=== PATIENT | female | born 1985 | race Two or more races ===

== ENCOUNTER 2024-08-24 04:43 | Emergency (ER) | payer SELFPAY ==
[2024-08-24 04:44] VITALS: BMI 25.6
[2024-08-24 05:53] VITALS: BP 147/91; PULSE 76; RESP 16; TEMP 36.8; O2SAT 100
--- NOTE | 2024-08-24 06:40 | XR_ITS ---
Examination: OB Transvaginal ultrasound of the pelvis, complete Technique: Transvaginal sonographic images pelvis performed using galan scale imaging Exam date and time: August 24, 2024 0732 hours INDICATIONS: Vaginal bleeding and pelvic cramping beginning 2 days ago FINDINGS: Uterus 11.5 cm, pole 2.3 cm corresponding to 19 week 0 day gestational age Cardiac motion 169 bpm Right ovary 4.6 cm arterial flow 20 x 16 mm cyst with internal echoes Left ovary is obscured by bowel gas IMPRESSION: Viable intrauterine gestation 9 weeks 0 days, no subchorionic hemorrhage.
--- NOTE | 2024-08-24 06:49 | PD.EDRME ---
Rapid Medical Screening Exam RME Arrival date/time: 08/24/24 04:43 This is a 39-year-old female that comes into the emergency room with complaints of vaginal bleeding. Patient states that yesterday she started having vaginal spotting but today she is actually having blood when she wipes. Patient is a 5 para 4. Patient states she is unsure when her last menstrual period was because she had a day where she bled in June but last menstrual period was in May. Patient thinks she is about 11 weeks . Patient reports that she is also experienced some abdominal lower cramping patient denies any past medical history. Patient denies any urinary symptoms. Patient denies any nausea vomiting. I have greeted and performed a focused initial assessment of this patient. Initial appropriate labs ordered at this time. A comprehensive ED assessment and evaluation of the patient and analysis of all test and completion of medical decision making process will be conducted by additional ED provider. Chief Complaint: Vaginal Bleeding Time Seen by Provider: 08/24/24 06:19 Vital signs: Vital Signs Temperature 98.2 F 08/24/24 05:53 Pulse Rate 76 08/24/24 05:53 Respiratory Rate 16 08/24/24 05:53 Blood Pressure 147/91 H 08/24/24 05:53 Pulse Oximetry (%) 100 08/24/24 05:53 Oxygen Delivery Method Room Air 08/24/24 05:53
[2024-08-24 08:05] LABS: Collection Type, Urine Voided
[2024-08-24 08:25] LABS: Basophils % (Auto) 0 % (0-2.5); Eosinophils % (Auto) 0 % (0-10); Hemoglobin 12.9 g/dL (12.0-16.0); Immature Granulocytes % (Auto) 1 % (0-0); Immature Granulocytes Auto 0.11 Thou/mm3 (0.00-0.00); Lymphocytes # (Auto) 1.6 Thou/mm3 (1.0-4.8); Lymphocytes % (Auto) 18 % (10-50); Mean Corpuscular HGB Conc 36.9 g/dl (31.0-37.0); Mean Corpuscular Hemoglobin 33.9 pg (25.0-35.0); Mean Corpuscular Volume 92 fL (80-100); Monocytes # (Auto) 0.6 Thou/mm3 (0.0-0.8); Monocytes % (Auto) 6 % (0-12); Neutrophils # (Auto) 6.8 Thou/mm3 (1.8-7.7); Neutrophils % (Auto) 75 % (37-80); Nucleated Red Blood Cell % 0 /100 WBC (0); Platelet Count 178 Thou/mm3 (140-440); RDW Standard Deviation 40.6 fL (36.4-46.3); White Blood Count 9.2 Thou/mm3 (3.6-11.0)
[2024-08-24 08:37] LABS: Amorphous Crystals,Urine Present (Absent); Bilirubin,Urine Negative (Negative); Blood,Urine Negative (Negative); Clarity,Urine Turbid (Clear/Hazy); Color,Urine Yellow (Lt Yel-Yel); Culture Indicated,Urine Not Indicated; Glucose, Urine Negative (Negative); Ketones,Urine Negative (Negative); Leukocyte Esterase,Urine Negative (Negative); Nitrite,Urine Negative (Negative); PH,Urine 7.5 (5.0-7.0); Protein,Urine Negative (Neg - Trace); RBC,Urine 1 /hpf (0-3); Specific Gravity,Urine 1.021 (1.001-1.035); Squamous Epithelial Cell,Urine 1 /hpf (0-5); Urobilinogen,Urine Negative mg/dL (0.0-1.0); WBC,Urine < 1 /hpf (0-5)
[2024-08-24 08:42] LABS: Alanine Aminotransferase 11 U/L (10-49); Albumin, Serum 4.3 gm/dL (3.5-5.0); Albumin/Globulin Ratio 1.9 (1.2-2.2); Alkaline Phosphatase 40 U/L (46-116); Anion Gap 9 (7-16); Aspartate Amino Transferase 16 U/L (0-34); BUN/Creatinine Ratio 13 Ratio (12-20); Bilirubin,Total 0.6 mg/dL (0.3-1.2); Blood Urea Nitrogen 8 mg/dL (9-23); Calcium 8.6 mg/dL (8.3-10.6); Calcium (Corrected) 8.6 mg/dL (8.5-10.1); Chloride 105 mMol/L (98-107); Creatinine (Component) 0.6 mg/dL (0.6-1.3); Estimated Creatinine Clearance 111.3 mL/min (>60); Globulin 2.3 gm/dL (2.3-3.5); Glucose 89 mg/dL (74-106); Osmolality,Calculated 274 (275-295); Potassium 4.3 mMol/L (3.4-5.1); Sodium 139 mMol/L (136-145); Total Protein 6.6 gm/dL (5.7-8.2); eGFR > 60 See Note
[2024-08-24 09:16] LABS: Beta HCG,Quantitative 107295 mIU/mL (<5.0)
--- NOTE | 2024-08-24 09:31 | PD.EDVAGBL ---
ED OB Contraction Preg RMI/HPI General Chief complaint: Vaginal Bleeding Stated complaint: VAGINAL BLEEDING Time Seen by Provider: 08/24/24 06:19 Arrival date/time: 08/24/24 04:43 RME / HPI RME / HPI Narrative: 08/24/24 04:43 This is a 39-year-old female that comes into the emergency room with complaints of vaginal bleeding. Patient states that yesterday she started having vaginal spotting but today she is actually having blood when she wipes. Patient is a 5 para 4. Patient states she is unsure when her last menstrual period was because she had a day where she bled in June but last menstrual period was in May. Patient thinks she is about 11 weeks . Patient reports that she is also experienced some abdominal lower cramping patient denies any past medical history. Patient denies any urinary symptoms. Patient denies any nausea vomiting. I have greeted and performed a focused initial assessment of this patient. Initial appropriate labs ordered at this time. A comprehensive ED assessment and evaluation of the patient and analysis of all test and completion of medical decision making process will be conducted by additional ED provider. DR. ALEJANDRO MAIN ED EVALUATION: 39 year old female, , currently 11 weeks by LMP of 06/05/2024, presents to the ED with vaginal bleeding. She reports light pink spotting over the past two days, which progressed to a heavier amount (less than a period) of bright red bleeding this morning. Bleeding is associated with pelvic cramping. She has not yet established care but has an OB appointment scheduled for 09/16/2024. She denies any other associated symptoms, including fever, chills, vomiting, or urinary symptoms. Related Data Home Medications ?Medication ?Instructions ?Recorded ?Confirmed vitamins-iron fumarate 27 1 tab PO QDAY 10/07/19 10/07/19 mg iron-folic acid 0.8 mg tablet ( Vitamin) Previous Rx's ?Medication ?Instructions ?Recorded ibuprofen 800 mg tablet 800 mg PO Q6H PRN pain #30 tabs 10/08/19 amoxicillin 875 mg-potassium 1 tab PO BID #14 tabs 09/17/22 clavulanate 125 mg tablet Allergies Allergy/AdvReac Type Severity Reaction Status Date / Time erythromycin base (From Allergy Rash Verified 08/24/24 04:44 Pediazole) sulfisoxazole (From Allergy Rash Verified 08/24/24 04:44 Pediazole) Review of Systems Review of Systems Narrative Review of Systems: Gen: No fever, no chills, no weight loss EYES: No discharge, no visual changes, no pain HEENT: No ear pain, no congestion, no sore throat PULM: no shortness of breath, no cough, no congestion CV: No chest pain, no dyspnea on exertion, no palpitations, no chest tightness GI: No nausea, no vomiting, no diarrhea, +pain, +vaginal bleeding, no constipation : No frequency, no urgency,? no dysuria Musc/skel: No joint pain, no back pain Skin: No rash, no ecchymosis, no lesions Neuro: No weakness, no headache Past Medical History Past Medical History REPRODUCTIVE: Positive Previous Pregnancies MUSCULOSKELETAL: Positive Musculoskeletal Disorders Family History FAMILY HISTORY: Positive Family Cardiac Disorders (maternal grandmother) and Family Cancer (paternal grandfather) Surgical History SURGICAL: Negative Section Social History SMOKING STATUS: Never smoker SECOND HAND EXPOSURE: No ED Exam Narrative Physical exam: GENERAL APPEARANCE: AxOx4, no obvious distress, nontoxic appearing HEENT: NC, AT. MMM. EOMI, clear conjunctiva, oropharynx clear. NECK: Supple. No stiffness or restricted ROM. HEART: Normal rate and regular rhythm, normal S1/S1, no m/r/g LUNGS: CTAB, moving air well. No crackles or wheezes are heard. ABDOMEN: Soft, nontender, nondistended with good bowel sounds heard. EXTREMITIES: Without cyanosis, clubbing or edema. MUSCULOSKELETAL: FROM of all major joints, no chest tenderness NEUROLOGICAL: Grossly nonfocal. Alert and oriented, moving all 4 extremities. CN not formally tested but appear grossly intact. Skin: Warm and dry without any rash. Course Quality Measures none Orders Category Date Time Status US OB transvaginal Stat Exams 08/24/24 06:40 Completed ABO/RH Type - Stat Lab 08/24/24 08:01 Results Beta HCG,Quantitative Stat Lab 08/24/24 08:01 Completed CBC Stat Lab 08/24/24 08:01 Completed Comprehensive Metabolic Panel Stat Lab 08/24/24 08:01 Completed Urinalysis, C/S if Indicated Stat Lab 08/24/24 06:57 Completed Vital Signs Vital signs: Vital Signs Temperature 98.2 F 08/24/24 05:53 Pulse Rate 76 08/24/24 05:53 Respiratory Rate 16 08/24/24 05:53 Blood Pressure 147/91 H 08/24/24 05:53 Pulse Oximetry (%) 100 08/24/24 05:53 Oxygen Delivery Method Room Air 08/24/24 05:53 Pulse ox is 100% on room air which is adequate. Vaginal Bleeding MDM Narrative MDM Narrative: Ade Cisneros am scribing for and in the presence of Dr. Alejandro. 39 year old at 11 weeks gestation by LMP presents with vaginal bleeding and pelvic cramping. Bleeding began as light pink spotting two days ago and progressed to bright red bleeding this morning, described as less than a typical menstrual period. She has not yet established care but has an OB appointment scheduled. Ultrasound performed in the ED shows a viable intrauterine consistent with 9 weeks 0 days gestation. beta-hCG is 107,295. Urinalysis shows only 1 RBC. Presentation is consistent with threatened miscarriage, though viability is confirmed on ultrasound. Patient counseled on signs of worsening bleeding or miscarriage. Advised pelvic rest until she is able to see her OB. Patient data External records reviewed:: [facility] previous records (I reviewed ED visit on 09/17/2022 ) Clinical information provided by:: patient Social determinants that could affect healthcare access:: none Patient has the following chronic illnesses:: , currently 11 weeks by LMP of 06/05/2024 No chronic medical hx reported How is presenting disease/condition affected by chronic disease/condition?: no chronic disease Evaluation data The following diagnostics were reviewed and interpreted by me:: lab results and radiology exam(s) Lab and/or radiology exams considered but not ordered:: None Interpretation Summary: Ordering Physician: Danelle Kolb NP Date of Service: 08/24/24 Procedure(s): US OB transvaginal Accession Number(s): [id number] cc: Dejan Martinez MD; Danelle Kolb NP; JOSE BULLARD~ Examination: OB Transvaginal ultrasound of the pelvis, complete Technique: Transvaginal sonographic images pelvis performed using galan scale imaging Exam date and time: August 24, 2024 0732 hours INDICATIONS: Vaginal bleeding and pelvic cramping beginning 2 days ago FINDINGS: Uterus 11.5 cm, pole 2.3 cm corresponding to 19 week 0 day gestational age Cardiac motion 169 bpm Right ovary 4.6 cm arterial flow 20 x 16 mm cyst with internal echoes Left ovary is obscured by bowel gas IMPRESSION: Viable intrauterine gestation 9 weeks 0 days, no subchorionic hemorrhage. Dictated By:Dejan Martinez MD Signed By:<Electronically signed by Dejan Martinez MD in OV>08/24/24 0810 Medications / Prescriptions Medications or Prescriptions considered but not ordered:: None Medication administrations:: None Consultations Consultation(s) initiated? (list below): No Diagnosis Vaginal Bleeding Differential Diagnosis: threatened , incomplete , ectopic without intrauterine and vaginal bleeding Most likely diagnosis given after review of the tests above:: Threatened miscarriage Admission Indicated Admission indicated?: not indicated Admission Request Was there a request for admission?: No Disposition Plan Disposition Plan: Discharge Discharge Attestation Discharge Attestation: The patient and all family members were given an opportunity to ask questions and understood the discharge instructions. Discharge instructions specifically effects, indications for sooner follow up or return to the emergency department, and the expected course of current diagnosis. Patient condition: Stable Discharge Plan Plan Patient Disposition: HOME (Self Care) Prescriptions/Referrals Prescriptions/Med Rec: No Action Vitamin 27 mg iron- 0.8 mg Tablet 1 tab PO QDAY ibuprofen 800 mg tablet 800 mg PO Q6H PRN (Reason: pain) Qty: 30 0RF amoxicillin-pot clavulanate 875-125 mg tablet 1 tab PO BID Qty: 14 0RF Referrals: Jose Bullard PA-C [Primary Care Provider] - In 1 week Problem List Clinical Impression: Threatened miscarriage Patient/Caregiver Discharge Instructions Education Materials: ED Possible Miscarriage ... Additional Instructions: Pelvic rest until cleared by your primary doctor. You can return to the emergency department sooner if symptoms worsen or for any new or concerning issues. Print Language: Upper Sorbian Stand Alone Forms: Ximena Award Info., Work/School Release, Patient Portal Info Letter
[2024-08-24 09:49] VITALS: BP 143/86; PULSE 69; RESP 18; TEMP 36.6; O2SAT 100
== END 2024-08-24 09:49 | disposition home or self-care (01) ==
PROVIDERS: Nurse Practitioner Family; Emergency Provider Emergency Medicine; PCP Physician Assistant
DX: O20.0 Threatened abortion (principal); Z3A.09 9 weeks gestation of pregnancy
CPT/HCPCS: 36415; 76817; 80053; 81001; 84702; 85025; 86900; 86901; 99284

== ENCOUNTER → 2025-03-25 | Outpatient (CLI) | payer OTHER, SELFPAY ==
[2025-03-25 10:21] LABS: Basophils # (Auto) 0.1 Thou/mm3 (0.0-0.2); Basophils % (Auto) 1 % (0-2.5); Eosinophils # (Auto) 0.0 Thou/mm3 (0.0-0.5); Eosinophils % (Auto) 0 % (0-10); Hematocrit 35.0 % (36.0-46.0); Hemoglobin 12.4 g/dL (12.0-16.0); Immature Granulocytes Auto 0.40 Thou/mm3 (0.00-0.00); Lymphocytes # (Auto) 1.9 Thou/mm3 (1.0-4.8); Lymphocytes % (Auto) 21 % (10-50); Mean Corpuscular HGB Conc 35.4 g/dl (31.0-37.0); Mean Corpuscular Hemoglobin 33.6 pg (25.0-35.0); Mean Corpuscular Volume 95 fL (80-100); Monocytes # (Auto) 0.7 Thou/mm3 (0.0-0.8); Monocytes % (Auto) 8 % (0-12); Neutrophils # (Auto) 6.2 Thou/mm3 (1.8-7.7); Neutrophils % (Auto) 67 % (37-80); Nucleated Red Blood Cell # 0.00 Thou/mm3 (0.00-0.00); Nucleated Red Blood Cell % 0 /100 WBC (0); Platelet Count 174 Thou/mm3 (140-440); RDW Standard Deviation 43.9 fL (36.4-46.3); Red Blood Count 3.69 Miln/mm3 (4.00-5.20); White Blood Count 9.3 Thou/mm3 (3.6-11.0)
== END | disposition home or self-care (01) ==
LOC: COPL 08:51
PROVIDERS: PCP Physician Assistant; Referring Provider Physician Assistant Medical; Visit Provider Physician Assistant Medical
DX: D50.9 Iron deficiency anemia, unspecified (principal)
CPT/HCPCS: 36415; 85025